=== PATIENT | female | born 1950 ===

== ENCOUNTER 2023-08-03 08:28 | Day surgery (SDC) | payer OTHER ==
[~2023-08-03] VITALS: Ht 165.1 cm; Wt 65.0 kg
[~2023-08-03 08:28] MED LIST: ATEN25 PO; Lactated Ringer's 1,000 ML IV ONE; OMEP20ER PO; propofoL 50 ML IV ONE
[2023-08-03] MEDS ORDERED: FAMO20 (08:43)
[2023-08-03] MEDS ORDERED: OMEP20ER (08:43)
[2023-08-03] MEDS ORDERED: Lactated Ringer's 1,000 ML IV ONE (09:03)
[2023-08-03 10:09] VITALS: BP 136/72
== END 2023-08-03 10:00 | disposition home or self-care (01) ==
LOC: ORSCSDS 08:28
PROVIDERS: Specialist
PROC: 0DB58ZX Excision of Esophagus, Via Natural or Artificial Opening Endoscopic, Diagnostic (ICD-10-PCS; principal; 2023-08-03 12:45)
PROC: 0DB98ZX Excision of Duodenum, Via Natural or Artificial Opening Endoscopic, Diagnostic (ICD-10-PCS; principal; 2023-08-03 12:45)
PROC: 0DB68ZX Excision of Stomach, Via Natural or Artificial Opening Endoscopic, Diagnostic (ICD-10-PCS; principal; 2023-08-03 12:45)
DX: R10.13 Epigastric pain (principal); K31.A11 Gastric intestinal metaplasia without dysplasia, involving the antrum; I10 Essential (primary) hypertension; Z79.899 Other long term (current) drug therapy
CPT/HCPCS: J2704; J7120